=== PATIENT | female | born 1960 | race Caucasian/White ===

== ENCOUNTER → 2019-12-03 | Day surgery (SDC) | payer OTHER ==
[2019-11-27 16:04] LABS: BASOPHILS # (AUTO) 0.1 (0.0-0.1); EOSINOPHILS # (AUTO) 0.2 (0.0-0.4); EOSINOPHILS % 2.1 % (0.0-6.0); HEMATOCRIT 39.4 % (34.2-44.1); HEMOGLOBIN 13.4 g/dL (12.0-16.0); LYMPHOCYTES # (AUTO) 2.8 (1.0-3.2); LYMPHOCYTES % 34.4 % (18.0-39.1); MEAN CORPUSCULAR HEMOGLOBIN 30.9 pg (28-32); MEAN CORPUSCULAR VOLUME 90.8 fL (81-99); MONOCYTES # (AUTO) 0.6 (0.2-0.8); MONOCYTES % 7.5 % (4.4-11.3); NEUTROPHILS # (AUTO) 4.5 (2.1-6.9); NEUTROPHILS % 54.5 % (38.7-80.0); PLATELET COUNT 224 x10e3/uL (140-360); RED BLOOD COUNT 4.34 x10e6/uL (3.6-5.1); RED CELL DISTRIBUTION WIDTH 13.1 % (11.7-14.4)
[2019-11-27 16:19] LABS: ANION GAP 16.8 mmol/L (8-16); BLOOD UREA NITROGEN 13 mg/dL (7-26); BUN/CREATININE RATIO 15 (6-25); CALCIUM 9.1 mg/dL (8.4-10.2); CARBON DIOXIDE 26 mmol/L (22-29); CHLORIDE 104 mmol/L (98-107); CREATININE, SERUM 0.84 mg/dL (0.57-1.11); EST GLOMERULAR FILTRATION RATE > 60 ML/MIN (60-); GLUCOSE 93 mg/dL (74-118); POTASSIUM 3.8 mmol/L (3.5-5.1); SODIUM 143 mmol/L (136-145)
[~2019-12-03] MED LIST: ARMOUR THYROID60 MG PO; ATENOLOL50 MG PO; BUPIVACAINE HCL 0.5% INJ 30 ML VIAL INJ ONE; CEFAZOLIN SOD 1 GM/NS 50ML 100 ML IV ONE; DEXAMETHASONE SOD PHOS INJ 4 MG/ML VIAL ONE; IRBESARTAN-HCT1 EAC1 PO; KETOROLAC TROMETHAMINE 30 MG/ML VIAL ONE; LIDOCAINE HCL 2% LOCAL INJ 5 ML SDV VIAL INJ ONE; ONDANSETRON HCL INJ 2MG/ML 2ML 2 MG/ML VIAL ONE; PROPOFOL IV EMULSION 10 MG/ML 20 ML VIAL ONE; SEVOFLURANE INHAL SOLN 250 ML PEN BTL ONE
[2019-12-03 07:35] VITALS: BP 143/71
--- NOTE | 2019-12-03 08:37 | Operative Report ---
DATE OF PROCEDURE: 12/03/2019 SURGEON: ROSS MCMANUS MD LOCATION: Place of surgery is [facility]. HISTORY: Ms. Issa is a patient with chronic trigger finger of the left middle finger i.e. stenosing tenosynovitis. The patient has trialed conservative efforts consistent with anti-inflammatory injections. The patient continue to have ongoing locking and pain of the digit. The patient had chosen to forego any further conservative management to proceed on with a release of A1 mile of the left middle finger. The patient was seen in the preoperative holding area and the left middle finger was marked in particular. I went ahead and palpated the airway. She had the most pain over the A1 mile and this was marked out as well. The risks and benefits of the surgery outlined to her consisting, but not limited to the following: Infection, blood loss, nerve, vessel, or tendon injury, DVT, ongoing pain, stiffness, and recurrent locking. The patient was then brought back to the operative suite, placed supine on the operative table. Time-out was taken for Ms. Lucina Issa for release of A1 mile, left middle finger. All were in agreement including nursing staff, anesthesia, and myself. The patient was transferred over to the surgical bed and successful general intubation was completed. The nonsterile tourniquet was placed high in the left upper arm. Left upper extremity was then sterilely prepped and draped in usual sterile fashion. A 15 Bard-Justin blade was used to make an oblique incision over the A1 mile and this was directly over where she had the majority of her pain on initial palpation. Blunt dissection was carried down. Upon which time, the A1 mile was identified and there was also noted to be a synovial tendon sheath cyst noted measuring approximately about 3-4 mm in size. The cyst was removed. The A1 mile was then carefully released. Upon which time, there was marked inflammatory fluid in the tendon sheath. This was washed out and irrigated out. The deep flexor tendons of both the FDS and FDP were identified and they were remarkably adhesed, tenosynovitis was noted. I went ahead and carefully proceeded on completing a flexor tenolysis of each of the individual flexor tendons x2. Copious irrigation was then carried out the entire wound. First, second and final counts found to be correct. Final irrigation was completed. Upon which the incision then closed using a 4-0 nylon suture in interrupted fashion and then Xeroform compressive dressing was applied. Tourniquet was released. There was no acute pulsatile bleeding noted. The patient was then successfully extubated and transferred to the PACU in stable condition. PREOPERATIVE DIAGNOSIS: Stenosing tenosynovitis of the left middle finger, i.e. trigger finger. POSTOPERATIVE DIAGNOSES: 1. Stenosing tenosynovitis of the left middle finger. 2. Tendon sheath cyst of the left middle finger. 3. Flexor tenosynovitis of the left middle finger. PROCEDURES: 1. Release of the A1 mile of the left middle finger i.e. stenosing tenosynovitis. 2. Excision of a tendon sheath cyst of the left middle finger. 3. Flexor tenolysis of the flexor tendons of the FDS and FDP of the left middle finger x2 tendons. SURGEON: Ross Macias DO. ANESTHESIA: General. ESTIMATED BLOOD LOSS: Less than 2-3 mL. SPECIMENS: Cyst and synovium. COMPLICATIONS: None. CONDITION: Stable to PACU. The patient was seen in PACU, dressings were clean and dry. Capillary refills were brisk. The intraoperative findings were again discussed with . Discharge and wound care instructions were given. The patient was asked to follow up in ortho clinic in 12 to 14 days. MD KAI PADGETT/BRANDO /[id number]
== END | disposition home or self-care (01) ==
LOC: OR 05:15
PROVIDERS: ATTEND Orthopaedic Surgery
DX: M65.842 Other synovitis and tenosynovitis, left hand (principal); M65.332 Trigger finger, left middle finger; M67.844 Other specified disorders of tendon, left hand; M65.841 Other synovitis and tenosynovitis, right hand; E66.09 Other obesity due to excess calories; Z01.810 Encounter for preprocedural cardiovascular examination; Z01.812 Encounter for preprocedural laboratory examination; Z11.59 Encounter for screening for other viral diseases; Z68.35 Body mass index [BMI] 35.0-35.9, adult
CPT/HCPCS: 26116; 26440 ×2; 36415; 80048; 85025; 93005; J0690; J1100; J1885; J2001; J2405; J2704; U0002

== ENCOUNTER 2023-12-13 23:02 | Emergency (ER) | payer OTHER ==
[~2023-12-13] VITALS: Ht 162.6 cm; Wt 80.3 kg
[~2023-12-13 23:02] MED LIST changes: -BUPIVACAINE HCL 0.5% INJ 30 ML VIAL INJ ONE; -CEFAZOLIN SOD 1 GM/NS 50ML 100 ML IV ONE; -DEXAMETHASONE SOD PHOS INJ 4 MG/ML VIAL ONE; -KETOROLAC TROMETHAMINE 30 MG/ML VIAL ONE; -LIDOCAINE HCL 2% LOCAL INJ 5 ML SDV VIAL INJ ONE; -ONDANSETRON HCL INJ 2MG/ML 2ML 2 MG/ML VIAL ONE; -PROPOFOL IV EMULSION 10 MG/ML 20 ML VIAL ONE; -SEVOFLURANE INHAL SOLN 250 ML PEN BTL ONE
[2023-12-13 23:18] LABS: BASOPHILS # (AUTO) 0.1 (0.0-0.1); BASOPHILS % 0.6 % (0.0-1.0); EOSINOPHILS # (AUTO) 0.1 (0.0-0.4); EOSINOPHILS % 1.1 % (0.0-6.0); HEMATOCRIT 42.7 % (34.2-44.1); HEMOGLOBIN 14.7 g/dL (12.0-16.0); LYMPHOCYTES % 26.3 % (18.0-39.1); MEAN CORPUSCULAR HEMOGLOBIN 31.6 pg (28-32); MEAN CORPUSCULAR HGB CONC 34.4 g/dL (31-35); MEAN CORPUSCULAR VOLUME 91.8 fL (81-99); MONOCYTES # (AUTO) 0.8 (0.2-0.8); MONOCYTES % 7.4 % (4.4-11.3); NEUTROPHILS # (AUTO) 7.2 (2.1-6.9); NEUTROPHILS % 64.2 % (38.7-80.0); PLATELET COUNT 246 x10e3/uL (140-360); RED BLOOD COUNT 4.65 x10e6/uL (3.6-5.1); RED CELL DISTRIBUTION WIDTH 12.2 % (11.7-14.4); WHITE BLOOD COUNT 11.21 x10e3/uL (4.8-10.8)
[2023-12-13 23:37] LABS: ALBUMIN 4.1 g/dL (3.5-5.0); ALBUMIN/GLOBULIN RATIO 1.5 (0.8-2.0); ANION GAP 15.1 mmol/L (8-16); BILIRUBIN,TOTAL 0.4 mg/dL (0.2-1.2); CALCIUM 9.1 mg/dL (8.4-10.2); CREATININE, SERUM 0.88 mg/dL (0.57-1.11); ETHANOL 92.9 mg/dL (0.0-10.0); TOTAL PROTEIN 6.9 g/dL (6.5-8.1)
[2023-12-13 23:46] LABS: POTASSIUM 3.1 mmol/L (3.5-5.1)
[2023-12-14 00:15] VITALS: PULSE 63; RESP 16; TEMP 98.1; O2SAT 98
== END 2023-12-14 00:23 | disposition home or self-care (01) ==
LOC: ER 23:06
DX: R07.89 Other chest pain (principal); F10.129 Alcohol abuse with intoxication, unspecified; I10 Essential (primary) hypertension
CPT/HCPCS: 36415; 71045; 80053; 80320; 83690; 83880; 84484; 85025; 93005; 99284